=== PATIENT | male | born 1965 ===

== ENCOUNTER 2019-02-17 01:47 | Emergency (ER) | payer MEDICARE ==
[2019-02-17] MEDS ORDERED: SODIUM CHLORIDE 0.9% FLUSH 10 ML SOL IV PRN (01:54)
[2019-02-17] MEDS ORDERED: ASPIRIN 81 MG CHEWABLE CTB PO STA (01:54)
[2019-02-17] MEDS ORDERED: NITROGLYCERIN 0.4 MG TAB SL PRN (01:54)
[2019-02-17 02:02] LABS: BASOPHILS % (AUTO) 1 % (0-3); EOSINOPHILS % (AUTO) 4 % (0-9); HEMATOCRIT 48 % (39-53); HEMOGLOBIN 15.9 gm/dl (13.5-17.7); LYMPHOCYTES % (AUTO) 33.8 % (10-50); MEAN CORPUSCULAR HEMOGLOBIN 30.4 pg (27.0-32.0); MEAN CORPUSCULAR HGB CONC 33.5 gm/dl (32.0-36.0); MEAN CORPUSCULAR VOLUME 91 fL (80-100); MONOCYTES % (AUTO) 7.2 % (0-12); NEUTROPHILS % (AUTO) 54.1 % (37-80)
[2019-02-17 02:05] VITALS: TEMP 97.8
[2019-02-17] MEDS ORDERED: ASPIRIN 81 MG CHEWABLE CTB ONE (02:09)
[2019-02-17 02:14] LABS: BLOOD UREA NITROGEN 16 mg/dl (7-18); CALCIUM 9.9 mg/dl (8.5-10.1); CARBON DIOXIDE 22.6 mEq/L (21-32); CHLORIDE 101 mMol/L (98-107); CREATINE KINASE 407 U/L (39-308); CREATININE 1.28 mg/dl (0.80-1.30); GLUCOSE 134 mg/dl (74-106); POTASSIUM 3.4 mMol/L (3.5-5.1); SODIUM 139 mMol/L (136-145); TROP I < 0.017 ng/ml (0.000-0.056)
[2019-02-17 02:28] LABS: INR 1.06 (0.86-1.12)
[2019-02-17 03:35] VITALS: BP 157/84; PULSE 102; RESP 15; O2SAT 97
== END 2019-02-17 04:09 | disposition home or self-care (01) | DRG 311 ==
LOC: ED 01:47
DX: I20.9 Angina pectoris, unspecified (principal); E11.9 Type 2 diabetes mellitus without complications; Z79.4 Long term (current) use of insulin
CPT/HCPCS: 36415; 71045; 80048; 82550; 84484; 85025; 85610; 85730; 93005; 99284; 99285